=== PATIENT | male | born 1960 | race Caucasian/White ===

== ENCOUNTER 2017-02-25 18:02 | Inpatient (IN) | payer MEDICAID ==
[2017-02-25 18:46] LABS: HEMOGLOBIN 12.5 gm/dL (13.2-17.3); MEAN CELL VOLUME 90.1 fl (80-99); MEAN CORPUSCULAR HEMOGLOBIN 31.1 pg (26.0-30.0); MEAN CORPUSCULAR HGB CONC 34.5 pg (28.0-36.0); MEAN PLATELET VOLUME 8.2 fl; PLATELET COUNT 107 Th/cmm (150-400); WHITE BLOOD COUNT 11.7 Th/cmm (4.8-10.8)
[2017-02-25 18:48] LABS: ABG SOURCE Arterial; ALLEN TEST P; BE(B) 11.3 mEq/L (-3.0-3.0); HCO3 33.7 mEq/L (20.0-26.0)
[2017-02-25 18:49] LABS: FIO2 21
[2017-02-25 18:52] LABS: PROTHROMBIN TIME (TEST) 10.4 SECONDS (9.5-11.5)
[2017-02-25 18:55] LABS: ALB/GLOB RATIO 1.1 (1.0-1.8); ALKALINE PHOSPHATASE 72 U/L (34-104); BILIRUBIN,TOTAL 0.5 mg/dL (0.3-1.0); BUN - UREA NITROGEN 17 mg/dL (7-25); BUN/CREATININE RATIO 28.3; CALCIUM SERUM 8.5 mg/dL (8.6-10.3); CARBON DIOXIDE 33.5 mEq/L (21.0-31.0); CHLORIDE 101 mEq/L (98-107); CREATININE - SERUM 0.6 mg/dL (0.7-1.3); GLUCOSE 79 mg/dL (70-105); POTASSIUM SERUM 3.5 mEq/L (3.5-5.1); SGOT 18 U/L (13-39); SGPT/ALT 24 U/L (7-52); SODIUM SERUM 138 mEq/L (136-145)
[2017-02-25 18:56] LABS: CHOLESTEROL 137 mg/dL (<200); TRIGLYCERIDES 71 mg/dL (<150)
[2017-02-25 19:04] LABS: NEUTROPHILS 85 % (40-80); PLATELET ESTIMATE DECREASED PLATELETS (NORMAL); PLATELET MORPHOLOGY NORMAL (NORMAL); TOTAL CELLS COUNTED 100
--- NOTE | 2017-02-25 19:09 | ED Physician Chart ---
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 HE DENIES FEVER, SPUTUM AND CHILLS. HE STATES THAT HE SMOKES CURRENTLY AND HAVE FOR YEARS. HE HAS A LONG HISTORY OF COPD AND PSYCHOSIS. HE DENIES CHEST PAIN AND ABDOMINAL PAIN. Allergies:: Allergies Allergy/AdvReac Type Severity Reaction Status Date / Time No Known Allergies Allergy Verified 02/25/17 18:07 Vitals:: Vital Signs - 8 hr 02/25/17 02/25/17 18:09 18:11 Temp 97.9 F HR 97 BP 167/94 167/94 O2 Sat % 96 Historian:: Patient, EMS, Medical Records Review:: Nurse's Note Reviewed, Transfer documents Reviewed Review of Systems - Review of Systems General/Constitutional: No fever, No chills, Weight loss, No weakness, No diaphoresis, No edema, Loss of appetite Skin: No skin lesions, No rash, No bruising Head: No headache, No light-headedness Eyes: No loss of vision, No pain, No diplopia ENT: No earache, No nasal drainage, No sore throat, No tinnitus Neck: No neck pain, No swelling, No thyromegaly, No stiffness, No mass noted Cardio Vascular: No chest pain, No palpitations, No PND, No orthopnea, No edema Pulmonary: SOB, No cough, No sputum, No wheezing GI: No nausea, No vomiting, No diarrhea, No pain, No melena, No hematochezia, No constipation, No hematemesis G/U: No dysuria, No frequency, No hematuria Musculoskeletal: No bone or joint pain, No back pain, No muscle pain Endocrine: No polyuria, No polydipsia Psychiatric: No prior psych history, No depression, No anxiety, No suicidal ideation Hematopoietic: No bruising, No lymphadenopathy Allergic/Immuno: No urticaria, No angioedema Neurological: No syncope, No focal symptoms, No weakness, No paresthesia, No headache, No seizure, No dizziness, No confusion, No vertigo Past Medical History - Past Medical History Obtainable: Yes Past Medical History: Asthma/COPD, Dyslipidemia, Dementia Social History: Smoker, No Alcohol, No Drug Use, Single, Care Facility Surgical History: None Psychiatricy History: Schizophrenia Medication: Reviewed Family Medical History - Family Member Mother History Unknown: Yes Hx Family Cancer: No Hx Family Coronary Artery Disease: No Hx Family Stroke: No Hx Family Dementia: No Hx Family AIDS: No Hx Family COPD: No Hx Family Psychiatric Problems: No Physical Exam - Physical Examination General/Constitutional: Awake, Well-developed, well-nourished, Alert, No distress, GCS 15, Non-toxic appearing, Ambulatory Head: Atraumatic Eyes: Lids, conjuctiva normal, PERRL, EOMI Skin: Nl inspection, No rash, No skin lesions, No ecchymosis, Well hydrated, No lymphadenopathy ENMT: External ears, nose nl, Nasal exam nl, Lips, teeth, gums nl Neck: Nontender, Full ROM w/o pain, No JVD, No nuchal rigidity, No bruit, No mass, No stridor Respiratory: Nl effort/Exclusion Other Respiratory comments:: THERE IS BILATERAL DECREASE EXCURSION OF THE DIAPHRAMS WITH A FEW WHEEZES HEARD THERE ARE DECREASE LUNG SOUND IN THE RIGHT MIDDLE LOBE AREA Cardio Vascular: RRR, No murmur, gallop, rubs, NL S1 S2 GI: No tenderness/rebounding/guarding, No organomegaly, No hernia, Normal BS's, Nondistended, No mass/bruits, No McBurney tenderness : No CVA tenderness Extremities: No tenderness or effusion, Full ROM, normal strength in all extremities, No edema, Normal digits & nails Other Extremities comments:: HE HAS BILATERAL MUSCLE WASTING OF ALL EXTREMITIES. Neuro/Psych: Alert/oriented, DTR's symmetric, Normal sensory exam, Normal motor strength, Judgement/insight normal, Mood normal, Normal gait, No focal deficits Misc: normal gait, Normal back, No paraspinal tenderness Labs/Radiology/EKG Results - Lab Results Results: Laboratory Tests 02/25/17 02/25/17 02/25/17 18:07 18:29 18:29 WBC 11.7 H RBC 4.00 L Hgb 12.5 L Hct 36.0 L MCV 90.1 MCH 31.1 H MCHC Differential 34.5 RDW 16.0 Plt Count 107 L MPV 8.2 PT INR PTT (Actin FS) Specimen Source Arterial Sample Site R-R pH 7.50 H pCO2 46.0 H pO2 70.0 L HCO3 33.7 H Base Excess 11.3 H O2 Saturation 95.0 Elieser Test P Vent Rate NA Inspired O2 21 Tidal Volume NA PEEP NA Pressure (ins/psv/peep) NA Critical Value RPINEIRA Sodium Potassium Chloride Carbon Dioxide Anion Gap BUN Creatinine Est GFR ( Amer) Est GFR (Non-Af Amer) BUN/Creatinine Ratio Glucose Calcium Total Bilirubin AST ALT Alkaline Phosphatase Troponin I Total Protein Albumin Globulin Albumin/Globulin Ratio Triglycerides 71 Cholesterol 137 LDL Cholesterol Direct 59 L HDL Cholesterol 72 02/25/17 02/25/17 02/25/17 18:29 18:29 18:29 WBC RBC Hgb Hct MCV MCH MCHC Differential RDW Plt Count MPV PT 10.4 INR 1.00 PTT (Actin FS) 27.3 Specimen Source Sample Site pH pCO2 pO2 HCO3 Base Excess O2 Saturation Elieser Test Vent Rate Inspired O2 Tidal Volume PEEP Pressure (ins/psv/peep) Critical Value Sodium 138 Potassium 3.5 Chloride 101 Carbon Dioxide 33.5 H Anion Gap 7.0 BUN 17 Creatinine 0.6 L Est GFR ( Amer) > 60.0 Est GFR (Non-Af Amer) > 60.0 BUN/Creatinine Ratio 28.3 Glucose 79 Calcium 8.5 L Total Bilirubin 0.5 AST 18 ALT 24 Alkaline Phosphatase 72 Troponin I 0.02 Total Protein 6.2 Albumin 3.3 L Globulin 2.9 Albumin/Globulin Ratio 1.1 Triglycerides Cholesterol LDL Cholesterol Direct HDL Cholesterol - Radiology Results Results: CHEST X-RAY = FINDING CONSISTENT WITH COPD. RIGHT UPPER LOBE INFILTRATE - EKG Interpretations EKG Time:: 18:26 Rate & Rhythm: RATE = 91, NORMAL SINUS [place]: RIGHT AXIS Intervals: THERE ARE NO ECTOPIC ED Septic Shock - . Is Septic Shock (SBP<90, OR Lactate>4 mmol\L) present?: No - <6hrs of presentation: Vital Signs: Vital Signs - 8 hr 02/25/17 02/25/17 18:09 18:11 Temp 97.9 F HR 97 BP 167/94 167/94 O2 Sat % 96 Reassessment (Disposition) - Reassessment Reassessment Condition:: Unchanged, Improved - Diagnosis Diagnosis:: PNEUMONIA COPD - Patient Disposition Discharge/Transfer:: Acute Care w/in this hosp Admitting Medical Physician:: Bird Carroll Condition at Disposition:: Improved ED Discharge Plan - Patient Disposition Admit/Discharge/Transfer: PT DISCHARGED HOME Condition at Disposition: Improved
[2017-02-25] MEDS ORDERED: Sodium Chloride 0.9% 1,000 ML IV ONE (19:42)
[2017-02-25] MEDS ORDERED: Azithromycin 500 MG in Sodium Chloride 0.9% 250 ML IV ONE (19:44)
[2017-02-25] MEDS ORDERED: Maalox 30 mL Cup PO PRN (21:12)
[2017-02-25] MEDS ORDERED: Albuterol Nebulizer 2.5mg/3mL HHN PRN (21:12)
[2017-02-25 21:48] VITALS: BP 138/74
[2017-02-25] MEDS: D5-0.45NS 1,000 ML IV SCH (22:53)
--- NOTE | 2017-02-25 23:00 | Admit Criteria Form ---
Admit Criteria Forms - Admit Criteria Diagnosis: COPD Clinical Indications for Admission to Inpatient Care (Place 'X' for any and all applicable criteria): Admission is indicated for ANY ONE of the following (1)(2)(3): [X]I. Acute exacerbation by high-risk comorbidity (e.g., pneumonia, dysrhythmia, heart failure, pleural effusion, pneumothorax) or severe underlying COPD (e.g., steroid dependent) [ ]II. Inpatient admission required rather than observation care (see Chronic Obstructive Pulmonary Disease: Observation Care) because of ANY ONE of the following: [ ]a) New or pre-existing signs or symptoms of COPD (eg, dyspnea or Tachypnea at rest or with minimal activity) that persist despite outpatient and observation care treatment [ ]b) New-onset hypoxemia (room air SaO2 less than 90%, PO2 less than 60 mm Hg (8.0 kPa)) that persists despite outpatient and observation care treatment [ ]c) Worsening of pre-existing hypoxemia (eg, new or increased requirement for supplemental oxygen to maintain oxygenation at baseline level) that persists despite outpatient and observation care treatment, with oxygen treatment needs performable only in acute inpatient setting [ ]d) Hypercarbia (PCO2 greater than 40 mm Hg (5.3 kPa))-induced respiratory acidosis (pH less than 7.35) that persists despite outpatient and observation care treatment [ ]e) Supplemental oxygen or respiratory treatments for over 24 hours that are performable only in acute inpatient setting [ ]f) Chest tube placement with active evacuation (e.g., suction, drainage) (5) [ ]g) Other condition, treatment or monitoring requiring inpatient admission [ ]III. Planned invasive surgical or diagnostic procedures requiring acute- care hospitalization [ ]IV. Acute respiratory failure (e.g., uncompensated hypercarbia, severe hypoxemia) [ ]V. Severe comorbid condition (e.g., severe steroid myopathy, acute vertebral fracture) that has acutely worsened pulmonary function [ ]. Confusion state, lethargy, obtundation, stupor or coma Extended stay beyond goal length of stay may be needed for (31)(32): [ ]a ) Respiratory Failure. [ ]b) Severe or persisting hypoxemia or hypercarbia [ ]c) Severe or persistent dyspnea [ ]d) Comorbidities (e.g. chronic heart failure, atrial fibrillation with rapid response, pneumonia) [ ]e) Malnutrition The original [facility] [facility] content created by [facility] has been revised. The portions of the content which have been revised are identified through the use of italic text or in bold, and [facility] has neither reviewed nor approved the modified material. All other unmodified content is copyright [facility]. Please see references footnoted in the original [facility] edition 2016 Admit Criteria Met?: Yes
[2017-02-26] MEDS: methylPREDNISolone SS 40 mg Vial IVP SCH ×3 (05:39→22:35)
[2017-02-26] MEDS: Ipratropium Neb 0.5 mg/2.5 mL UD IH SCH ×4 (07:06→19:45)
[2017-02-26] MEDS: Albuterol Nebulizer 2.5mg/3mL IH SCH ×4 (07:06→19:45)
[2017-02-26] MEDS ORDERED: Non-Formulary Item 1 EA (Fluticasone/Salmeterol [Advair 250-50 Diskus] 1 PUFF) INH SCH (09:00)
[2017-02-26 09:41] LABS: URINE BILIRUBIN NEGATIVE (NEGATIVE); URINE BLOOD NEGATIVE (NEGATIVE); URINE COLOR YELLOW; URINE GLUCOSE (UA) NEGATIVE (NEGATIVE); URINE KETONE NEGATIVE (NEGATIVE); URINE PROTEIN NEGATIVE (NEGATIVE); URINE UROBILINOGEN 0.2 E.U./dL (0.2 - 1.0)
[2017-02-26 09:42] LABS: URINE BACTERIA NONE SEEN /hpf (NONE SEEN); URINE EPITHELIAL CELLS FEW /lpf (FEW); URINE RBC 0-2 /hpf (0-5); URINE WBC 0-2 /hpf (0-5)
--- NOTE | 2017-02-26 10:13 | Diagnostic Imaging Report ---
History: Dyspnea Findings: Heart size normal. Lung meza hyperexpanded. There is scarring in the right upper lung zone. Impression right upper lobe scarring. No previous exams available for comparison.
[2017-02-26] MEDS: D5-0.45NS 1,000 ML IV SCH (10:52)
[2017-02-27] MEDS: methylPREDNISolone SS 40 mg Vial IVP SCH ×3 (05:22→21:11)
[2017-02-27] MEDS: Albuterol Nebulizer 2.5mg/3mL IH SCH ×3 (07:25→14:07)
[2017-02-27] MEDS: Ipratropium Neb 0.5 mg/2.5 mL UD IH SCH ×3 (07:25→14:07)
[2017-02-27] MEDS ORDERED: IOHEXOL 300MG/ML 100 ML VIAL ONE (09:12)
--- NOTE | 2017-02-27 11:04 | Diagnostic Imaging Report ---
CT brain INDICATION: Rule out bleed Technique: Following IV contrast administration Serial axial images were performed from the skull base to the vertex using 5 mm slice thickness and interval.CTDI [id number] FINDINGS: Ventricles are enlarged due to central white matter volume loss. No areas of abnormal enhancement postcontrast images. ..Cortical sulcal markings are prominent. There are no areas of hemorrhage or edema in the brain or brainstem. No extra-axial fluid collections. Mild mucosal thickening within the ethmoid sinus air cells. IMPRESSION: Atrophy. No acute intracranial pathology.
--- NOTE | 2017-02-27 11:07 | Diagnostic Imaging Report ---
INDICATION: Pain Technique: Following IV contrast administration Serial axial images were performed through the abdomen and pelvis and then reformatted in the coronal plane. CTDI is 5.9mGy. [id number] FINDINGS: Lung bases clear. Liver and spleen are normal in size without focal mass. No renal masses stones or hydronephrosis. No masses or enlargement of the adrenal glands or pancreas. No biliary dilatation. Gallbladder contains no stones. No distention of small bowel loops. The appendix is not well seen. Within the pelvis bladder is smooth walled without stones. No abnormal masses. Small amount of free fluid in the lower right paracolic gutter and in the pelvic recesses the peritoneal cavity. Bone windows show no lytic or blastic lesions of bone. IMPRESSION: Small amount of free fluid in the pelvis etiology indeterminate. Pelvic organs are poorly visualized due to multiple loops of unopacified bowel.
[2017-02-27] MEDS: D5-0.45NS 1,000 ML IV SCH (15:23)
[2017-02-27] MEDS: Ipratropium Neb 0.5 mg/2.5 mL UD HHN SCH (19:15)
[2017-02-27] MEDS: Albuterol Nebulizer 2.5mg/3mL HHN SCH (19:15)
--- NOTE | 2017-02-27 22:08 | Internal Medicine Prog Note ---
Internal Medicine Subjective - Subjective Patient seen and examined:: with staff, chart reviewed Patient is:: awake, verbal, interactive Patient Complaints of:: congestion Per staff patient is:: no adverse event, poor appetite Internal Medicine Objective - Results Result Diagrams: 02/25/17 18:29 02/25/17 18: Recent Labs: Laboratory Last Values WBC 11.7 Th/cmm (4.8-10.8) H 02/25/17 18: RBC 4.00 Mil/cmm (4.30-5.70) L 02/25/17 18: Hgb 12.5 gm/dL (13.2-17.3) L 02/25/17 18: Hct 36.0 % (39.0-49.0) L 02/25/17 18: MCV 90.1 fl (80-99) 02/25/17 18: MCH 31.1 pg (26.0-30.0) H 02/25/17 18: MCHC Differential 34.5 pg (28.0-36.0) 02/25/17 18: RDW 16.0 % (11.5-20.0) 02/25/17 18: Plt Count 107 Th/cmm (150-400) L 02/25/17 18: MPV 8.2 fl 02/25/17 18: Neutrophils (Manual) 85 % (40-80) H 02/25/17 18: Lymphocytes 11 % (20-50) L 02/25/17 18: Monocytes 4 % (2-10) 02/25/17 18: Platelet Estimate DECREASED PLATELETS (NORMAL) 02/25/17 18: Platelet Morphology NORMAL (NORMAL) 02/25/17 18: RBC Morph Micro Appear NORMAL (NORMAL) 02/25/17 18: PT 10.4 SECONDS (9.5-11.5) 02/25/17 18: INR 1.00 (0.5-1.4) 02/25/17 18: PTT (Actin FS) 27.3 SECONDS (26.0-38.0) 02/25/17 18:29 Specimen Source Arterial 02/25/17 18:07 Sample Site R-R 02/25/17 18:07 pH 7.50 (7.35-7.45) H 02/25/17 18:07 pCO2 46.0 mmHg (35.0-45.0) H 02/25/17 18:07 pO2 70.0 mmHg (80.0-100.0) L 02/25/17 18:07 HCO3 33.7 mEq/L (20.0-26.0) H 02/25/17 18:07 Base Excess 11.3 mEq/L (-3.0-3.0) H 02/25/17 18:07 O2 Saturation 95.0 % (92.0-100.0) 02/25/17 18:07 Elieser Test P 02/25/17 18:07 Vent Rate NA 02/25/17 18:07 Inspired O2 21 02/25/17 18:07 Tidal Volume NA 02/25/17 18:07 PEEP NA 02/25/17 18:07 Pressure (ins/psv/peep) NA 02/25/17 18:07 Critical Value RPINEIRA 02/25/17 18:07 Sodium 138 mEq/L (136-145) 02/25/17 18:29 Potassium 3.5 mEq/L (3.5-5.1) 02/25/17 18:29 Chloride 101 mEq/L (98-107) 02/25/17 18:29 Carbon Dioxide 33.5 mEq/L (21.0-31.0) H 02/25/17 18:29 Anion Gap 7.0 (7.0-16.0) 02/25/17 18:29 BUN 17 mg/dL (7-25) 02/25/17 18:29 Creatinine 0.6 mg/dL (0.7-1.3) L 02/25/17 18:29 Est GFR ( Amer) > 60.0 ml/min (>90) 02/25/17 18:29 Est GFR (Non-Af Amer) > 60.0 ml/min 02/25/17 18:29 BUN/Creatinine Ratio 28.3 02/25/17 18:29 Glucose 79 mg/dL (70-105) 02/25/17 18:29 Calcium 8.5 mg/dL (8.6-10.3) L 02/25/17 18:29 Total Bilirubin 0.5 mg/dL (0.3-1.0) 02/25/17 18:29 AST 18 U/L (13-39) 02/25/17 18:29 ALT 24 U/L (7-52) 02/25/17 18:29 Alkaline Phosphatase 72 U/L (34-104) 02/25/17 18: Troponin I 0.02 ng/mL (0.01-0.05) 02/25/17 18:29 Total Protein 6.2 gm/dL (6.0-8.3) 02/25/17 18: Albumin 3.3 gm/dL (4.2-5.5) L 02/25/17 18: Globulin 2.9 gm/dL 02/25/17 18: Albumin/Globulin Ratio 1.1 (1.0-1.8) 02/25/17 18: Triglycerides 71 mg/dL (<150) 02/25/17 18: Cholesterol 137 mg/dL (<200) 02/25/17 18: LDL Cholesterol Direct 59 mg/dL (75-193) L 02/25/17 18: HDL Cholesterol 72 mg/dL (23-92) 02/25/17 18: TSH 1.84 uIU/ml (0.34-5.60) 02/25/17 18:29 Urine Source CLEAN C 02/26/17 09:05 Urine Color YELLOW 02/26/17 09:05 Urine Clarity CLEAR (CLEAR) 02/26/17 09:05 Urine pH 6.0 02/26/17 09:05 Ur Specific [place] 1.015 (1.005-1.030) 02/26/17 09:05 Urine Protein NEGATIVE mg/dL (NEGATIVE) 02/26/17 09:05 Urine Glucose (UA) NEGATIVE mg/dL (NEGATIVE) 02/26/17 09:05 Urine Ketones NEGATIVE mg/dL (NEGATIVE) 02/26/17 09:05 Urine Blood NEGATIVE (NEGATIVE) 02/26/17 09:05 Urine Nitrate NEGATIVE (NEGATIVE) 02/26/17 09:05 Urine Bilirubin NEGATIVE (NEGATIVE) 02/26/17 09:05 Urine Urobilinogen 0.2 E.U./dL (0.2 - 1.0) 02/26/17 09:05 Ur Leukocyte Esterase NEGATIVE (NEGATIVE) 02/26/17 09:05 Urine RBC 0-2 /hpf (0-5) H 02/26/17 09:05 Urine WBC 0-2 /hpf (0-5) 02/26/17 09:05 Ur Epithelial Cells FEW /lpf (FEW) 02/26/17 09:05 Urine Bacteria NONE SEEN /hpf (NONE SEEN) 02/26/17 09:05 - Physical Exam Vitals and I&O: Vital Signs Temp 98.6 F 02/27/17 20:00 Pulse 89 02/27/17 20:00 Resp 18 02/27/17 20:00 BP 139/76 02/27/17 20:00 Pulse Ox 97 02/27/17 20:00 Intake & Output 02/27/17 02/27/17 02/28/17 06:59 18:59 06:59 Intake Total 1390 1600 Output Total 900 Balance 1390 700 Intake: Intake, IV Amount 1050 50 Cefepime 1 gm In Dextrose 50 50 5% 50 ml @ 100 mls/hr IV Q12H NANDA Rx#:[id number] D5-0.45NS 1,000 ml @ 100 1000 mls/hr IV .Q10H [facility]AN[facility] Rx#: [id number] Oral 340 1550 Output: Urine 900 Other: # Voids 2 # Bowel Movements 0 Active Medications: Current Medications Acetaminophen (Tylenol) 650 mg PO Q4HR PRN PRN Reason: Pain or Fever >101 Stop: 04/26/17 21:11 Al Hydrox/Mg Hydrox/Simethicone (Maalox) 30 ml PO Q6HR PRN PRN Reason: Constipation Stop: 04/26/17 21:11 Albuterol Sulfate (Albuterol 2.5mg/3ml Neb Ud) 2.5 mg HHN Q4HR PRN PRN Reason: Shortness of Breath Stop: 04/26/17 21:11 Last Admin: 02/25/17 21:47 Dose: 2.5 mg Albuterol Sulfate (Albuterol 2.5mg/3ml Neb Ud) 2.5 mg HHN QIDRT NANDA Stop: 04/27/17 08:59 Last Admin: 02/27/17 19:15 Dose: 2.5 mg Guaifenesin (Robitussin) 200 mg PO Q4HR PRN PRN Reason: Cough or Congestion Stop: 04/26/17 21:11 Heparin Sodium (Porcine) (Heparin) 5,000 units SUBQ Q12HR [facility] Stop: 04/27/17 08:59 Last Admin: 02/27/17 21:10 Dose: Not Given Cefepime HCl 1 gm/ Dextrose 50 mls @ 100 mls/hr IV Q12H [facility] Stop: 04/26/17 20:59 Last Admin: 02/27/17 21:09 Dose: 100 mls/hr Ipratropium [place] (Atrovent Neb 0.5mg/2.5ml) 0.5 mg HHN QIDRT [facility] Stop: 04/27/17 08:59 Last Admin: 02/27/17 19:15 Dose: 0.5 mg Ondansetron HCl (Zofran) 4 mg IV Q8H PRN PRN Reason: Nausea / Vomiting Stop: 04/26/17 21:11 Zolpidem Tartrate (Ambien) 10 mg PO HS PRN PRN Reason: Insomnia Stop: 04/26/17 21:11 General: alert HEENT: NC/AT, PERRLA Neck: Supple, No JVD Lungs: congested, wheezing Cardiovascular: RRR, Normal S1, Normal S2 Abdomen: soft non-tender, globular, positive bowel sound Extremities: excoriation Neurological: alert Internal Medicine Assmt/Plan - Assessment Assessment: acute copd exac acute bronchitis weight loss electrolytes abn - Plan Plan: cont on iv abx cont on iv steroid will check ct chest and abd dw rn cpm
[2017-02-28] MEDS: D5-0.45NS 1,000 ML IV SCH ×2 (03:53→23:21)
[2017-02-28] MEDS: methylPREDNISolone SS 40 mg Vial IVP SCH ×3 (05:18→20:28)
[2017-02-28 05:47] LABS: MEAN CELL VOLUME 89.9 fl (80-99); MEAN CORPUSCULAR HEMOGLOBIN 30.6 pg (26.0-30.0); MEAN PLATELET VOLUME 8.6 fl; RED BLOOD COUNT 3.27 Mil/cmm (4.30-5.70)
[2017-02-28 05:54] LABS: HEMATOCRIT 29.4 % (39.0-49.0); PLATELET COUNT 167 Th/cmm (150-400)
[2017-02-28 06:25] LABS: ALB/GLOB RATIO 1.3 (1.0-1.8); ALKALINE PHOSPHATASE 56 U/L (34-104); ANION GAP 3.8 (7.0-16.0); BILIRUBIN,TOTAL 0.2 mg/dL (0.3-1.0); BUN - UREA NITROGEN 29 mg/dL (7-25); BUN/CREATININE RATIO 48.3; CALCIUM SERUM 8.3 mg/dL (8.6-10.3); CARBON DIOXIDE 31.1 mEq/L (21.0-31.0); CHLORIDE 111 mEq/L (98-107); CREATININE - SERUM 0.6 mg/dL (0.7-1.3); GLUCOSE 113 mg/dL (70-105); MAGNESIUM 1.8 mg/dL (1.9-2.7); POTASSIUM SERUM 3.9 mEq/L (3.5-5.1); SGOT 15 U/L (13-39); SGPT/ALT 22 U/L (7-52); SODIUM SERUM 142 mEq/L (136-145)
[2017-02-28] MEDS: Albuterol Nebulizer 2.5mg/3mL HHN SCH ×4 (06:50→20:26)
[2017-02-28] MEDS: Ipratropium Neb 0.5 mg/2.5 mL UD HHN SCH ×4 (06:51→20:26)
[2017-02-28 06:53] LABS: NEUTROPHILS 95 % (40-80); TOTAL CELLS COUNTED 100
[2017-02-28 06:54] LABS: PLATELET ESTIMATE ADEQUATE (NORMAL); PLATELET MORPHOLOGY GIANT PLATELETS SEEN (NORMAL)
[2017-02-28] MEDS: guaiFENesin 200 MG/10 ML UDC PO PRN (08:37)
--- NOTE | 2017-02-28 12:53 | Internal Medicine Prog Note ---
Internal Medicine Subjective - Subjective Patient seen and examined:: with staff, chart reviewed Patient is:: awake, verbal, interactive Per staff patient is:: no adverse event, no episodes of fall, confused Internal Medicine Objective - Results Result Diagrams: 02/28/17 05:28 02/28/17 05:28 Recent Labs: Laboratory Last Values WBC 10.0 Th/cmm (4.8-10.8) 02/28/17 05:28 RBC 3.27 Mil/cmm (4.30-5.70) L 02/28/17 05:28 Hgb 10.0 gm/dL (13.2-17.3) L D 02/28/17 05:28 Hct 29.4 % (39.0-49.0) L D 02/28/17 05:28 MCV 89.9 fl (80-99) 02/28/17 05:28 MCH 30.6 pg (26.0-30.0) H 02/28/17 05:28 MCHC Differential 34.0 pg (28.0-36.0) 02/28/17 05:28 RDW 16.0 % (11.5-20.0) 02/28/17 05:28 Plt Count 167 Th/cmm (150-400) D 02/28/17 05:28 MPV 8.6 fl 02/28/17 05:28 Neutrophils (Manual) 95 % (40-80) H 02/28/17 05:28 Lymphocytes 3 % (20-50) L 02/28/17 05:28 Monocytes 2 % (2-10) 02/28/17 05:28 Platelet Estimate ADEQUATE (NORMAL) 02/28/17 05:28 Platelet Morphology GIANT PLATELETS SEEN (NORMAL) 02/28/17 05:28 RBC Morph Micro Appear NORMAL (NORMAL) 02/25/17 18:29 PT 10.4 SECONDS (9.5-11.5) 02/25/17 18:29 INR 1.00 (0.5-1.4) 02/25/17 18:29 PTT (Actin FS) 27.3 SECONDS (26.0-38.0) 02/25/17 18:29 Specimen Source Arterial 02/25/17 18:07 Sample Site R-R 02/25/17 18:07 pH 7.50 (7.35-7.45) H 02/25/17 18:07 pCO2 46.0 mmHg (35.0-45.0) H 02/25/17 18:07 pO2 70.0 mmHg (80.0-100.0) L 02/25/17 18:07 HCO3 33.7 mEq/L (20.0-26.0) H 02/25/17 18:07 Base Excess 11.3 mEq/L (-3.0-3.0) H 02/25/17 18:07 O2 Saturation 95.0 % (92.0-100.0) 02/25/17 18:07 Elieser Test P 02/25/17 18:07 Vent Rate NA 02/25/17 18:07 Inspired O2 21 02/25/17 18:07 Tidal Volume NA 02/25/17 18:07 PEEP NA 02/25/17 18:07 Pressure (ins/psv/peep) NA 02/25/17 18:07 Critical Value RPINEIRA 02/25/17 18:07 Sodium 142 mEq/L (136-145) 02/28/17 05:28 Potassium 3.9 mEq/L (3.5-5.1) 02/28/17 05:28 Chloride 111 mEq/L (98-107) H 02/28/17 05:28 Carbon Dioxide 31.1 mEq/L (21.0-31.0) H 02/28/17 05:28 Anion Gap 3.8 (7.0-16.0) L 02/28/17 05:28 BUN 29 mg/dL (7-25) H 02/28/17 05:28 Creatinine 0.6 mg/dL (0.7-1.3) L 02/28/17 05:28 Est GFR ( Amer) > 60.0 ml/min (>90) 02/28/17 05:28 Est GFR (Non-Af Amer) > 60.0 ml/min 02/28/17 05:28 BUN/Creatinine Ratio 48.3 02/28/17 05:28 Glucose 113 mg/dL (70-105) H 02/28/17 05:28 Calcium 8.3 mg/dL (8.6-10.3) L 02/28/17 05:28 Magnesium 1.8 mg/dL (1.9-2.7) L 02/28/17 05:28 Total Bilirubin 0.2 mg/dL (0.3-1.0) L 02/28/17 05:28 AST 15 U/L (13-39) 02/28/17 05:28 ALT 22 U/L (7-52) 02/28/17 05:28 Alkaline Phosphatase 56 U/L (34-104) 02/28/17 05:28 Troponin I 0.02 ng/mL (0.01-0.05) 02/25/17 18:29 Total Protein 5.0 gm/dL (6.0-8.3) L 02/28/17 05:28 Albumin 2.8 gm/dL (4.2-5.5) L 02/28/17 05:28 Globulin 2.2 gm/dL 02/28/17 05:28 Albumin/Globulin Ratio 1.3 (1.0-1.8) 02/28/17 05:28 Triglycerides 71 mg/dL (<150) 02/25/17 18:29 Cholesterol 137 mg/dL (<200) 02/25/17 18:29 LDL Cholesterol Direct 59 mg/dL (75-193) L 02/25/17 18:29 HDL Cholesterol 72 mg/dL (23-92) 02/25/17 18:29 TSH 1.84 uIU/ml (0.34-5.60) 02/25/17 18:29 Urine Source CLEAN C 02/26/17 09:05 Urine Color YELLOW 02/26/17 09:05 Urine Clarity CLEAR (CLEAR) 02/26/17 09:05 Urine pH 6.0 02/26/17 09:05 Ur Specific [place] 1.015 (1.005-1.030) 02/26/17 09:05 Urine Protein NEGATIVE mg/dL (NEGATIVE) 02/26/17 09:05 Urine Glucose (UA) NEGATIVE mg/dL (NEGATIVE) 02/26/17 09:05 Urine Ketones NEGATIVE mg/dL (NEGATIVE) 02/26/17 09:05 Urine Blood NEGATIVE (NEGATIVE) 02/26/17 09:05 Urine Nitrate NEGATIVE (NEGATIVE) 02/26/17 09:05 Urine Bilirubin NEGATIVE (NEGATIVE) 02/26/17 09:05 Urine Urobilinogen 0.2 E.U./dL (0.2 - 1.0) 02/26/17 09:05 Ur Leukocyte Esterase NEGATIVE (NEGATIVE) 02/26/17 09:05 Urine RBC 0-2 /hpf (0-5) H 02/26/17 09:05 Urine WBC 0-2 /hpf (0-5) 02/26/17 09:05 Ur Epithelial Cells FEW /lpf (FEW) 02/26/17 09:05 Urine Bacteria NONE SEEN /hpf (NONE SEEN) 02/26/17 09:05 - Physical Exam Vitals and I&O: Vital Signs Temp 98.7 F 02/28/17 11:50 Pulse 86 02/28/17 11:50 Resp 18 02/28/17 11:50 BP 138/73 02/28/17 11:50 Pulse Ox 98 02/28/17 11:50 Intake & Output 02/27/17 02/28/17 02/28/17 18:59 06:59 18:59 Intake Total 1600 550 Output Total 900 Balance 700 550 Intake: Intake, IV Amount 50 50 Cefepime 1 gm In Dextrose 50 50 5% 50 ml @ 100 mls/hr IV Q12H [facility] Rx#:[id number] Oral 1550 500 Output: Urine 900 Other: # Voids 4 # Bowel Movements 1 Active Medications: Current Medications Acetaminophen (Tylenol) 650 mg PO Q4HR PRN PRN Reason: Pain or Fever >101 Stop: 04/26/17 21:11 Al Hydrox/Mg Hydrox/Simethicone (Maalox) 30 ml PO Q6HR PRN PRN Reason: Constipation Stop: 04/26/17 21:11 Albuterol Sulfate (Albuterol 2.5mg/3ml Neb Ud) 2.5 mg HHN Q4HR PRN PRN Reason: Shortness of Breath Stop: 04/26/17 21:11 Last Admin: 02/25/17 21:47 Dose: 2.5 mg Albuterol Sulfate (Albuterol 2.5mg/3ml Neb Ud) 2.5 mg HHN QIDRT [facility] Stop: 04/27/17 08:59 Last Admin: 02/28/17 10:43 Dose: 2.5 mg Guaifenesin (Robitussin) 200 mg PO Q4HR PRN PRN Reason: Cough or Congestion Stop: 04/26/17 21:11 Last Admin: 02/28/17 08:37 Dose: 200 mg Heparin Sodium (Porcine) (Heparin) 5,000 units SUBQ Q12HR [facility] Stop: 04/27/17 08:59 Last Admin: 02/28/17 08:38 Dose: 5,000 units Cefepime HCl 1 gm/ Dextrose 50 mls @ 100 mls/hr IV Q12H [facility] Stop: 04/26/17 20:59 Last Admin: 02/28/17 08:37 Dose: 100 mls/hr Dextrose/Sodium Chloride (D5-0.45ns) 1,000 mls @ 60 mls/hr IV .[id number] [facility] Stop: 04/28/17 22:03 Last Admin: 02/28/17 03:53 Dose: 60 mls/hr Ipratropium [place] (Atrovent Neb 0.5mg/2.5ml) 0.5 mg HHN QIDRT [facility] Stop: 04/27/17 08:59 Last Admin: 02/28/17 10:44 Dose: 0.5 mg Methylprednisolone Sodium Succinate (Solu-Medrol) 40 mg IVP Q8HR [facility] Stop: 04/28/17 22:03 Last Admin: 02/28/17 05:18 Dose: 40 mg Olanzapine (Zyprexa) 2.5 mg PO HS NANDA PRN Reason: Protocol Stop: 04/29/17 20:59 Ondansetron HCl (Zofran) 4 mg IV Q8H PRN PRN Reason: Nausea / Vomiting Stop: 04/26/17 21:11 Zolpidem Tartrate (Ambien) 10 mg PO HS PRN PRN Reason: Insomnia Stop: 04/26/17 21:11 General: demented HEENT: NC/AT, PERRLA Neck: Supple, No JVD Lungs: congested, rales Cardiovascular: RRR, Normal S1, Normal S2 Abdomen: soft non-tender, globular, positive bowel sound Extremities: excoriation Neurological: no change Internal Medicine Assmt/Plan - Assessment Assessment: acute copd exac acute bronchitis weight loss electrolytes abn sad - Plan Plan: cont on iv abx cont on iv steroid will check ct chest and abd dw rn cpm referrred to dr juarez for psych
[2017-02-28] MEDS ORDERED: Mag Sulfate 2gm/50mL Premix 2 GM/50 ML BAG IV ONE (13:00)
--- NOTE | 2017-02-28 13:58 | History & Physical ---
ADMIT DATE: 02/26/2017 CHIEF COMPLAINT: Increasing shortness of breath, the patient diagnosed with pneumonia. HISTORY OF PRESENT ILLNESS: This is a 56-year-old male with history of COPD and mental illness was admitted from [facility] secondary to increasing shortness of breath. The patient has pneumonia and was on p.o. antibiotic, but not improving. The patient denies chest pain. The patient with shortness of breath with exertion. The patient has significant weight loss, he cannot quantify, but he is not able to gain weight and losing progressively. PAST MEDICAL HISTORY: As mentioned in history present illness. PAST SURGICAL HISTORY: Denies surgeries in the past. ALLERGIES: No known drug allergies. MEDICATIONS: Fluticasone and albuterol ____. FAMILY HISTORY: Noncontributory. SOCIAL HISTORY: The patient is a avid smoker, drinks on occasion. The patient works in manufacturing, single, no children, had been in a board and [facility] for 10 years. REVIEW OF SYSTEMS: GENERAL: Complains not feeling well, associated weight loss, no fever or night sweats. HEENT: No blurred vision. NECK: No neck pain. RESPIRATORY: ____. The patient with COPD. HEART: Denies hypertension or coronary artery disease. ABDOMEN: No nausea, vomiting, pain. GENITOURINARY: The patient denies increased frequency or dysuria. NEUROLOGIC: No headache, seizure or syncope. PHYSICAL EXAMINATION: VITAL SIGNS: Blood pressure 123/77, respirations 18, pulse 95 and temperature ____. GENERAL: Elderly male, thin built. NECK: Supple. No mass. HEENT: Bilateral temporal wasting. LUNGS: Equal breath sounds, few rhonchi. CARDIOVASCULAR: Regular rhythm without appreciable murmurs. ABDOMEN: Soft and nontender. Positive bowel sounds. EXTREMITIES: Positive excoriations. NEUROLOGIC: Limited. LABORATORY DATA: As detailed in the laboratory sheet. WBC 11.7, hemoglobin 12.5, platelets 107 and pH 7.5, pCO2 of 46, pO2 was 70. Sodium 130, potassium 3.5, BUN 17, creatinine 0.6, blood sugar 79. Albumin 3.3. Total cholesterol 137. UA essentially negative. ASSESSMENT AND PLAN: Acute chronic obstructive pulmonary disease exacerbation, pneumonia, weight loss of unclear etiology, leukocytosis, anemia, hypoxia, low albumin. We will continue the patient on IV antibiotic and IV hydration. We will send sputum culture for C and S as well as blood culture. We will work out the patient for occult malignancy. We will continue to monitor the patient closely. JOB# [id number]
[2017-03-01] MEDS: methylPREDNISolone SS 40 mg Vial IVP SCH ×2 (06:11→15:01)
--- NOTE | 2017-03-01 06:43 | Consultation ---
DATE OF CONSULTATION: 02/28/2017 The patient was seen, chart reviewed, discussed with staff. HISTORY OF PRESENT ILLNESS: The patient is a 56-year-old male with a history of schizophrenia, currently on medical floor. Reports been off his medications for quite some time, sedative on different medication including Seroquel and Depakote, did not help much and has been to psychiatric hospital____ as before. The patient admits to slight paranoia at times. The patient has been cooperative with staff. PAST MEDICAL HISTORY: Deferred to Dr. Carroll as per H and P. The patient has a history of asthma, COPD and dyslipidemia. PSYCHOSOCIAL HISTORY: The patient resides in a board and care. PAST PSYCHIATRIC HISTORY: Schizophrenia and possible dementia. MENTAL STATUS EXAMINATION: The patient is cooperative, slightly disheveled, unkempt, his speech is monotonous. Affect is restricted. Thought process ____ great. The patient is slightly guarded, somewhat paranoid. He is oriented to person and being in the hospital, does not know his exact age, he was able to tell his date of , not sure about the date. No suicidal thoughts, no homicidal thoughts. ASSESSMENT: Schizophrenia, paranoid type, rule out dementia, Alzheimer's type. PLAN: At this time, would recommend continuation of medical supportive measures, would use a small dose of Zyprexa. The patient is actively passive in agreement, said he is going to try medication ____that he sleeps better and he will feel less anxious. We will follow while in the hospital. Thank you for the consultation. [facility]# [id number]
[2017-03-01] MEDS: Albuterol Nebulizer 2.5mg/3mL HHN SCH ×3 (07:52→16:43)
[2017-03-01] MEDS: Ipratropium Neb 0.5 mg/2.5 mL UD HHN SCH ×2 (07:53→12:11)
[2017-03-01] MEDS: guaiFENesin 200 MG/10 ML UDC PO PRN (08:30)
--- NOTE | 2017-03-01 15:09 | Internal Medicine Prog Note ---
Internal Medicine Subjective - Subjective Patient seen and examined:: with staff, chart reviewed Patient is:: awake, verbal, interactive, in bed Patient Complaints of:: congestion Per staff patient is:: no adverse event, agitated, noncompliant, confused Internal Medicine Objective - Results Result Diagrams: 02/28/17 05:28 02/28/17 05:28 Recent Labs: Laboratory Last Values WBC 10.0 Th/cmm (4.8-10.8) 02/28/17 05:28 RBC 3.27 Mil/cmm (4.30-5.70) L 02/28/17 05:28 Hgb 10.0 gm/dL (13.2-17.3) L D 02/28/17 05:28 Hct 29.4 % (39.0-49.0) L D 02/28/17 05:28 MCV 89.9 fl (80-99) 02/28/17 05:28 MCH 30.6 pg (26.0-30.0) H 02/28/17 05:28 MCHC Differential 34.0 pg (28.0-36.0) 02/28/17 05:28 RDW 16.0 % (11.5-20.0) 02/28/17 05:28 Plt Count 167 Th/cmm (150-400) D 02/28/17 05:28 MPV 8.6 fl 02/28/17 05:28 Neutrophils (Manual) 95 % (40-80) H 02/28/17 05:28 Lymphocytes 3 % (20-50) L 02/28/17 05:28 Monocytes 2 % (2-10) 02/28/17 05:28 Platelet Estimate ADEQUATE (NORMAL) 02/28/17 05:28 Platelet Morphology GIANT PLATELETS SEEN (NORMAL) 02/28/17 05:28 RBC Morph Micro Appear NORMAL (NORMAL) 02/25/17 18:29 PT 10.4 SECONDS (9.5-11.5) 02/25/17 18:29 INR 1.00 (0.5-1.4) 02/25/17 18:29 PTT (Actin FS) 27.3 SECONDS (26.0-38.0) 02/25/17 18:29 Specimen Source Arterial 02/25/17 18:07 Sample Site R-R 02/25/17 18:07 pH 7.50 (7.35-7.45) H 02/25/17 18:07 pCO2 46.0 mmHg (35.0-45.0) H 02/25/17 18:07 pO2 70.0 mmHg (80.0-100.0) L 02/25/17 18:07 HCO3 33.7 mEq/L (20.0-26.0) H 02/25/17 18:07 Base Excess 11.3 mEq/L (-3.0-3.0) H 02/25/17 18:07 O2 Saturation 95.0 % (92.0-100.0) 02/25/17 18:07 Elieser Test P 02/25/17 18:07 Vent Rate NA 02/25/17 18:07 Inspired O2 21 02/25/17 18:07 Tidal Volume NA 02/25/17 18:07 PEEP NA 02/25/17 18:07 Pressure (ins/psv/peep) NA 02/25/17 18:07 Critical Value RPINEIRA 02/25/17 18:07 Sodium 142 mEq/L (136-145) 02/28/17 05:28 Potassium 3.9 mEq/L (3.5-5.1) 02/28/17 05:28 Chloride 111 mEq/L (98-107) H 02/28/17 05:28 Carbon Dioxide 31.1 mEq/L (21.0-31.0) H 02/28/17 05:28 Anion Gap 3.8 (7.0-16.0) L 02/28/17 05:28 BUN 29 mg/dL (7-25) H 02/28/17 05:28 Creatinine 0.6 mg/dL (0.7-1.3) L 02/28/17 05:28 Est GFR ( Amer) > 60.0 ml/min (>90) 02/28/17 05:28 Est GFR (Non-Af Amer) > 60.0 ml/min 02/28/17 05:28 BUN/Creatinine Ratio 48.3 02/28/17 05:28 Glucose 113 mg/dL (70-105) H 02/28/17 05:28 Calcium 8.3 mg/dL (8.6-10.3) L 02/28/17 05:28 Magnesium 1.8 mg/dL (1.9-2.7) L 02/28/17 05:28 Total Bilirubin 0.2 mg/dL (0.3-1.0) L 02/28/17 05:28 AST 15 U/L (13-39) 02/28/17 05:28 ALT 22 U/L (7-52) 02/28/17 05:28 Alkaline Phosphatase 56 U/L (34-104) 02/28/17 05:28 Troponin I 0.02 ng/mL (0.01-0.05) 02/25/17 18:29 Total Protein 5.0 gm/dL (6.0-8.3) L 02/28/17 05:28 Albumin 2.8 gm/dL (4.2-5.5) L 02/28/17 05:28 Globulin 2.2 gm/dL 02/28/17 05:28 Albumin/Globulin Ratio 1.3 (1.0-1.8) 02/28/17 05:28 Triglycerides 71 mg/dL (<150) 02/25/17 18:29 Cholesterol 137 mg/dL (<200) 02/25/17 18:29 LDL Cholesterol Direct 59 mg/dL (75-193) L 02/25/17 18:29 HDL Cholesterol 72 mg/dL (23-92) 02/25/17 18:29 Tumor Marker AFP 4.8 ng/mL (0.0-8.3) 02/26/17 17:35 Carcinoembryonic Ag 5.1 ng/mL (0.0-4.7) H 02/26/17 17:35 Prostate Specific Ag 1.3 ng/mL (0.0-4.0) 02/26/17 17:35 TSH 1.84 uIU/ml (0.34-5.60) 02/25/17 18:29 Urine Source CLEAN C 02/26/17 09:05 Urine Color YELLOW 02/26/17 09:05 Urine Clarity CLEAR (CLEAR) 02/26/17 09:05 Urine pH 6.0 02/26/17 09:05 Ur Specific Avant 1.015 (1.005-1.030) 02/26/17 09:05 Urine Protein NEGATIVE mg/dL (NEGATIVE) 02/26/17 09:05 Urine Glucose (UA) NEGATIVE mg/dL (NEGATIVE) 02/26/17 09:05 Urine Ketones NEGATIVE mg/dL (NEGATIVE) 02/26/17 09:05 Urine Blood NEGATIVE (NEGATIVE) 02/26/17 09:05 Urine Nitrate NEGATIVE (NEGATIVE) 02/26/17 09:05 Urine Bilirubin NEGATIVE (NEGATIVE) 02/26/17 09:05 Urine Urobilinogen 0.2 E.U./dL (0.2 - 1.0) 02/26/17 09:05 Ur Leukocyte Esterase NEGATIVE (NEGATIVE) 02/26/17 09:05 Urine RBC 0-2 /hpf (0-5) H 02/26/17 09:05 Urine WBC 0-2 /hpf (0-5) 02/26/17 09:05 Ur Epithelial Cells FEW /lpf (FEW) 02/26/17 09:05 Urine Bacteria NONE SEEN /hpf (NONE SEEN) 02/26/17 09:05 - Physical Exam Vitals and I&O: Vital Signs Temp 98.9 F 03/01/17 11:44 Pulse 88 03/01/17 11:44 Resp 18 03/01/17 14:13 BP 159/88 03/01/17 11:44 Pulse Ox 99 03/01/17 11:44 Intake & Output 02/28/17 03/01/17 03/01/17 18:59 06:59 18:59 Intake Total 50 1410 Balance 50 1410 Intake: Intake, IV Amount 50 1050 Cefepime 1 gm In Dextrose 50 50 5% 50 ml @ 100 mls/hr IV Q12H NANDA Rx#:[id number] D5-0.45NS 1,000 ml @ 60 1000 mls/hr IV .[id number] NANDA Rx #:[id number] Oral 360 Other: # Voids 4 Active Medications: Current Medications Acetaminophen (Tylenol) 650 mg PO Q4HR PRN PRN Reason: Pain or Fever >101 Stop: 04/26/17 21:11 Al Hydrox/Mg Hydrox/Simethicone (Maalox) 30 ml PO Q6HR PRN PRN Reason: Constipation Stop: 04/26/17 21:11 Albuterol Sulfate (Albuterol 2.5mg/3ml Neb Ud) 2.5 mg HHN Q4HR PRN PRN Reason: Shortness of Breath Stop: 04/26/17 21:11 Last Admin: 02/25/17 21:47 Dose: 2.5 mg Albuterol Sulfate (Albuterol 2.5mg/3ml Neb Ud) 2.5 mg HHN QIDRT [facility] Stop: 04/27/17 08:59 Last Admin: 03/01/17 12:11 Dose: 2.5 mg Guaifenesin (Robitussin) 200 mg PO Q4HR PRN PRN Reason: Cough or Congestion Stop: 04/26/17 21:11 Last Admin: 03/01/17 08:30 Dose: 200 mg Heparin Sodium (Porcine) (Heparin) 5,000 units SUBQ Q12HR [facility] Stop: 04/27/17 08:59 Last Admin: 03/01/17 08:30 Dose: 5,000 units Cefepime HCl 1 gm/ Dextrose 50 mls @ 100 mls/hr IV Q12H [facility] Stop: 04/26/17 20:59 Last Admin: 03/01/17 08:29 Dose: 100 mls/hr Dextrose/Sodium Chloride (D5-0.45ns) 1,000 mls @ 60 mls/hr IV .[id number] [facility] Stop: 04/28/17 22:03 Last Admin: 02/28/17 23:21 Dose: 60 mls/hr Ipratropium [place] (Atrovent Neb 0.5mg/2.5ml) 0.5 mg N QIDRT [facility] Stop: 04/27/17 08:59 Last Admin: 03/01/17 12:11 Dose: 0.5 mg Methylprednisolone Sodium Succinate (Solu-Medrol) 40 mg IVP Q8HR [facility] Stop: 04/28/17 22:03 Last Admin: 03/01/17 15:01 Dose: 40 mg Olanzapine (Zyprexa) 2.5 mg PO HS NANDA PRN Reason: Protocol Stop: 04/29/17 20:59 Last Admin: 02/28/17 20:27 Dose: 2.5 mg Ondansetron HCl (Zofran) 4 mg IV Q8H PRN PRN Reason: Nausea / Vomiting Stop: 04/26/17 21:11 Zolpidem Tartrate (Ambien) 10 mg PO HS PRN PRN Reason: Insomnia Stop: 04/26/17 21:11 General: demented HEENT: NC/AT, PERRLA Neck: Supple, No JVD Lungs: congested, rales Cardiovascular: RRR, Normal S1, Normal S2 Abdomen: soft non-tender, globular, positive bowel sound Extremities: excoriation Neurological: no change Internal Medicine Assmt/Plan - Assessment Assessment: acute copd exac acute bronchitis weight loss electrolytes abn sad - Plan Plan: cont on iv abx cont on iv steroid will check ct chest and abd dw rn cpm referrred to dr juarez for psych
--- NOTE | 2017-04-25 00:58 | Discharge Summary ---
DATE OF DISCHARGE: 03/01/2017 CHIEF COMPLAINT: Increasing shortness of breath and diagnosis of pneumonia. FINAL DIAGNOSES: Acute chronic obstructive pulmonary disease exacerbation, pneumonia, weight loss of unclear etiology, leukocytosis, anemia, hypoxemia. HISTORY: This is a 56-year-old male with history of COPD ____ brought in from board and care secondary to increased shortness of breath. The patient was diagnosed with possible pneumonia in the Emergency Room with possible infiltrates. PHYSICAL EXAMINATION: VITAL SIGNS: Blood pressure 112/64, respirations 18, pulse 80, temperature 98.6. GENERAL: Middle-aged male, appears chronically ill. NECK: Supple. No mass. LUNGS: Equal breath sounds, few rhonchi. HEART: Regular rate and rhythm without appreciable murmurs. ABDOMEN: Soft, nontender. EXTREMITIES: Positive excoriations. HOSPITAL COURSE: The patient was admitted to medical floor, continue oxygen and bronchodilator treatment, IV hydration, IV antibiotic and IV steroids. The patient had a CT chest and abdomen. The patient was also seen by Dr. Ruiz for psychiatry and adjusted psychiatric medication. The patient's condition has improved and cleared for discharge. CONDITION ON DISCHARGE: Fair. DISCHARGE INSTRUCTIONS: The patient to continue current regimen including antibiotic and steroids. 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 The patient to report to the nearest ER if his conditions worsen. JOB# [id number]
== END 2017-03-01 18:30 | DRG 720 ==
LOC: ER 18:02 → MSI 20:40
PROVIDERS: ADMIT Internal Medicine; ATTEND Internal Medicine
DX: A41.9 Sepsis, unspecified organism (principal); J96.20 Acute and chronic respiratory failure, unspecified whether with hypoxia or hypercapnia; E43 Unspecified severe protein-calorie malnutrition; J18.9 Pneumonia, unspecified organism; F03.90 Unspecified dementia, unspecified severity, without behavioral disturbance, psychotic disturbance, mood disturbance, and anxiety; J44.0 Chronic obstructive pulmonary disease with (acute) lower respiratory infection; J44.1 Chronic obstructive pulmonary disease with (acute) exacerbation; J20.9 Acute bronchitis, unspecified; D64.9 Anemia, unspecified; F17.210 Nicotine dependence, cigarettes, uncomplicated; F20.0 Paranoid schizophrenia; E78.5 Hyperlipidemia, unspecified; Z91.14 Patient's other noncompliance with medication regimen
CPT/HCPCS: 36415-UA; 36600-90; 70460-TC; 71010-TC; 80053-TC; 80061-TC; 81001-TC; 82105-90; 82378-90; 82803-TC; 83735-TC; 84153-90; 84443-TC; 84484-TC; 85007-TC; 85027-TC; 85610-TC; 85730-TC; 90779; 93005; 94640; 94760; J0456; J0692; J0696; J1644; J2060; J2920; J2930; J3475; J7030; J7613; Q9967; Z7610